=== PATIENT | male | born 1980 | race Caucasian/White ===

== ENCOUNTER → 2019-05-24 00:57 | Emergency (ER) | payer MEDICAID ==
--- NOTE | 2019-05-24 00:57 | NUR ---
PT ARRIVED VIA AMBULANCE. UPON ARRIVAL HE LWBS FROM FACILITY. STATES FEELING BETTER AND WISHED TO LEAVE. PATIENT LEFT WITHOUT BEING SEEN BY DR MIR. NO FURTHER CARE PROVIDED FOR PATIENT.
== END | disposition left against medical advice (07) ==
LOC: MED 00:57
DX: Z53.21 Procedure and treatment not carried out due to patient leaving prior to being seen by health care provider (principal)